=== PATIENT | male | born 1940 | race Caucasian/White ===

== ENCOUNTER → 2018-12-27 | Outpatient (CLI) | payer MEDICARE ==
[2018-12-27 08:47] LABS: Blood Urea Nitrogen 15 mg/dL (9-20)
--- NOTE | 2018-12-27 15:09 | CT ---
EXAMINATION TYPE: CT angio thor/abd pel aorta DATE OF EXAM: 12/27/2018 11:05 AM COMPARISON: None HISTORY: Abnormal US. Aortic abdominal aneurysm without rupture CT DLP: 1010 mGycm Automated exposure control for dose reduction was used. TECHNIQUE: Performed with IV Contrast, patient injected with 100 mL of Isovue 370. Three-D reconstructed images performed separately by the technologist are reviewed.. FINDINGS: CT chest: Lung windows are clear. Aorta: The ascending thoracic aorta at the level of main pulmonary artery is 3.7 cm. The main pulmona ry artery the bifurcation is 3.6 cm. Aorta at the level of the mid aortic arch is 2.8 cm. The descend ing thoracic aorta in its midportion is 2.9 cm. Aorta at the diaphragm measures 2.7 cm. There is a mi nimal fusiform prominence of the distal abdominal aorta with the AP dimension of 3.4 cm. This termina wendy at the bifurcation. 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 There is some fusiform prominence of the distal right common iliac artery measuring 2.3 cm. Interna l/external iliac vessels are patent. Common femoral arteries appear unremarkable. Profunda femoris ve ssels appear normal. Portion of the thyroid visualized is normal. No enlarged mediastinal adenopathy is evident. Hilar reg ions are unremarkable. There is fullness of the right adrenal gland which may has some central hypodensity. This measures 2. 4 cm in transverse dimension and 12 Hounsfield units. Left adrenal gland appears normal. Liver and sp pranav are unremarkable loops of bowel without oral contrast are unremarkable. Prostate is prominent. U rinary bladder is normal. IMPRESSION: THERE IS MILD FUSIFORM PROMINENCE OF THE DISTAL ABDOMINAL AORTA WITH SOME FUSIFORM PROMINENCE OF THE PROXIMAL MID TO DISTAL COMMON ILIAC ARTERIES DISCUSSED ABOVE.
== END ==
LOC: RADCTMAIN 08:06
PROVIDERS: ATTEND Internal Medicine Clinical Cardiac Electrophysiology
DX: I71.4 Abdominal aortic aneurysm, without rupture (principal); I72.3 Aneurysm of iliac artery
CPT/HCPCS: 82565; 84520; 71275; 36415; 74174; Q9967

== ENCOUNTER → 2020-10-12 | Outpatient (CLI) | payer MEDICARE ==
--- NOTE | 2020-10-12 16:03 | XR ---
Right hip HISTORY: Pain 2 views the right hip There is joint space loss and marginal spurring. Prominence present along the femoral neck on the obl ique view. No fracture or dislocation. Bone mineralization is maintained. IMPRESSION: Osteoarthritis. Difficult to exclude acetabular femoral impingement.
--- NOTE | 2020-10-12 16:06 | XR ---
No sacral spine HISTORY: Low back pain 5 views of lumbosacral spine There is no evident spondylolysis. Multilevel spondylosis is present. Bone mineralization mildly redu grzegorz. Lumbar vertebral bodies show preserved height and alignment. Sclerosis present in the posterior elements of the lower lumbar spine. Some loss of disc height present at intervertebral levels. Surgic al clips present right upper quadrant. IMPRESSION: Degenerative disc disease and facet arthropathy.
== END | disposition home or self-care (01) ==
LOC: RADXRMAIN 14:20
PROVIDERS: ATTEND Family Medicine
DX: M51.36 Other intervertebral disc degeneration, lumbar region (principal); M47.816 Spondylosis without myelopathy or radiculopathy, lumbar region; M16.11 Unilateral primary osteoarthritis, right hip; M25.851 Other specified joint disorders, right hip
CPT/HCPCS: 72110; 73502

== ENCOUNTER → 2024-09-04 | Outpatient (CLI) | payer MEDICARE | END | disposition home or self-care (01) | LOC: LABWHC1 09:28 | PROVIDERS: ATTEND Dermatology MOHS-Micrographic Surgery | DX: Z53.9 Procedure and treatment not carried out, unspecified reason (principal) ==

== ENCOUNTER → 2025-02-12 | Outpatient (CLI) | payer MEDICARE ==
--- NOTE | 2025-02-12 16:05 | XR ---
EXAMINATION TYPE: XR lumbosacral spine min 4V DATE OF EXAM: 02/12/2025 CLINICAL INDICATION: Male, 84 years old with history of M54.9 Dorsalgia, pain TECHNIQUE: Frontal, lateral, and oblique images of the lumbar spine are obtained. COMPARISON: Prior lumbar spine x-ray October 12, 2020 FINDINGS: There are 5 lumbar type vertebral bodies redemonstrated. The lumbar spine shows stable an d satisfactory alignment. Vertebral body heights remain within normal limits. Persistent mild to mo derate disc space narrowing with vacuum disc phenomenon at the L2-L3 level. Moderate multilevel anter ior and lateral spurring is redemonstrated The oblique images appear within normal limits. More Promi nent overlying arterial vascular calcification. Infrarenal AAA is suspected. Advise nonemergent ultra sound aorta follow-up to further evaluate. IMPRESSION: As above. [facility], , 02/12/2025 4:03 PM
== END | disposition home or self-care (01) ==
LOC: RADXRMAIN 15:21
DX: M51.360 Other intervertebral disc degeneration, lumbar region with discogenic back pain only (principal)
CPT/HCPCS: 72110